=== PATIENT | female | born 1975 | race Hispanic/Latino ===

== ENCOUNTER 2021-02-27 11:37 | Outpatient (CLI) | payer OTHER | END 2021-02-27 11:38 | disposition home or self-care (01) | LOC: BICRAD 11:37 | PROVIDERS: ATTEND Internal Medicine | DX: M79.671 Pain in right foot (principal) ==

== ENCOUNTER 2025-08-02 11:52 | Day surgery (SDC) | payer BC, SELFPAY ==
[2025-08-02 12:41] LABS: #Basophils Less than 0.03 10x3/uL (0.0-0.2); #Eosinophils 0.06 10x3/uL (0.0-0.7); #Monocytes 0.51 10x3/uL (0.11-0.59); #Neutrophils 5.98 10x3/uL (1.40-6.50); %Basophils 0.2 % (0.0-1.0); %Eosinophils 0.7 % (0.0-10.0); %Lymphocytes 22.9 % (21.0-51.0); %Monocytes 5.9 % (0.0-10.0); %Neutrophils 69.5 % (42.0-75.0); Hematocrit 39.6 % (36.0-47.0); Hemoglobin 12.7 g/dL (12.0-16.0); Mean Corpuscular Hemoglobin 28.5 pg (27.0-31.0); Mean Corpuscular Volume 89.0 fL (78.0-98.0); Platelet Count 292 10x3/uL (130-400); Red Blood Cell (RBC) Count 4.45 mill/uL (4.20-5.40); White Blood Cell (WBC) Count 8.61 10x3/uL (4.8-10.8)
[2025-08-02 12:55] LABS: ALT (SGPT) 24 U/L (Less than 34); AST (SGOT) 30 U/L (11-34); Albumin 3.6 g/dL (3.1-4.5); Alkaline Phosphatase 73 U/L (40-110); Anion Gap 13 mmol/L (10-20); BUN (Urea Nitrogen) 8 mg/dL (7.0-18.7); Bilirubin, Total 0.4 mg/dL (0.3-1.2); Calc. Creatinine Clearance 0 mL/min (70-130); Calcium 8.6 mg/dL (7.8-10.44); Carbon Dioxide 22 mmol/L (22-29); Chloride 107 mmol/L (98-107); Globulin 3.9 g/dL (2.4-3.5); Glucose 101 mg/dL (70-105); Lipase 24 U/L (8-78); Potassium 3.8 mmol/L (3.5-5.1); Sodium 138 mmol/L (136-145)
[2025-08-02] MEDS ORDERED: Ondansetron PF 4 MG/2 ML Vial IVP PRN (13:52)
[2025-08-02] MEDS ORDERED: Acetaminophen 325 MG TAB PO PRN (13:52)
[2025-08-02] MEDS ORDERED: Rocuronium Bromide 10 MG/ML (10ML VIAL) ONE (14:34)
[2025-08-02] MEDS ORDERED: PROPOFOL 20 ML ONE (14:34)
[2025-08-02] MEDS ORDERED: Lidocaine 1% PF 5 ML VIAL ONE (14:34)
[2025-08-02] MEDS ORDERED: Bupivacaine 0.25% HCL 30 ML VIAL ONE (14:48)
[2025-08-02] MEDS ORDERED: fentaNYL PF 100 MCG/2 ML SYRINGE ONE (15:05)
[2025-08-02] MEDS ORDERED: Ondansetron PF 4 MG/2 ML Vial ONE ×2 (15:06→17:19)
[2025-08-02] MEDS ORDERED: CEFAZOLIN 1 GM VIAL ONE (15:31)
[2025-08-02] MEDS ORDERED: Glycopyrrolate 0.2 MG/ML 5 ML SYRINGE ONE (15:49)
[2025-08-02] MEDS ORDERED: HYDROmorphone 2 MG/ML VIAL ONE (16:00)
[2025-08-02] MEDS ORDERED: Ketorolac Tromethamine 30 MG (1 mL) VIAL ONE (16:12)
[2025-08-02] MEDS ORDERED: NEOSTIGMINE 3 MG/3 ML SYRINGE ONE (16:12)
[2025-08-02] MEDS ORDERED: Metoclopramide HCl 10 MG (2 mL) VIAL ONE (18:21)
== END 2025-08-02 19:44 | disposition home or self-care (01) ==
LOC: ERS 11:52 → SDC 14:30
PROVIDERS: ATTEND Colon & Rectal Surgery
PROC: 0FT44ZZ Resection of Gallbladder, Percutaneous Endoscopic Approach (ICD-10-PCS; principal; 2025-08-02)
DX: K80.12 Calculus of gallbladder with acute and chronic cholecystitis without obstruction (principal); Z87.59 Personal history of other complications of pregnancy, childbirth and the puerperium
CPT/HCPCS: 80053; 83690; 85025; 88304; 99285; C1889; J0169; J0665; J0690; J1100; J1171; J1630; J1885; J2250; J2704; J2765